=== PATIENT | female | born 1935 | race Two or more races ===

== ENCOUNTER 2018-01-05 10:59 | Outpatient (CLI) | payer OTHER | END 2018-01-05 11:07 | disposition home or self-care (01) | LOC: SONOGRAMA 10:59 | DX: N64.89 Other specified disorders of breast (principal) ==

== ENCOUNTER 2018-02-26 11:01 | Outpatient (CLI) | payer OTHER | END 2018-02-26 11:08 | disposition home or self-care (01) | LOC: SONOGRAMA 11:01 | DX: C50.811 Malignant neoplasm of overlapping sites of right female breast (principal); N60.11 Diffuse cystic mastopathy of right breast; N60.12 Diffuse cystic mastopathy of left breast ==

== ENCOUNTER 2018-04-02 07:00 | Day surgery (SDC) | payer OTHER ==
[~2018-04-02 07:00] MED LIST: ALTACE1.25 MG; AMLODIPINE BESYL5 MG; ATACAND32 MG; METOPROLOL SUC100 MG; PRAVASTATIN SOD40 MG; SYNTHROID100 MCG
== END 2018-04-02 13:00 | disposition home or self-care (01) ==
LOC: CIR.AMB 07:00 → O/R 07:17 → RECOVERY 07:17 → CIR.AMB 13:00 → EDSTATUS 16:45 → RECOVERY 16:45 → O/R 21:15
DX: C50.411 Malignant neoplasm of upper-outer quadrant of right female breast (principal)